=== PATIENT | female | born 1965 | race Caucasian/White ===

== ENCOUNTER 2016-09-05 10:00 | Day surgery (SDC) | payer OTHER ==
[2016-09-05] MEDS ORDERED: D5 LR 1000 ML 1,000 ML IV ONE (10:25)
[2016-09-05] MEDS ORDERED: DIPRIVAN VIAL 20 ML ONE ×2 (12:02→12:38)
[2016-09-05] MEDS ORDERED: DIPRIVAN VIAL 10 ML ONE (12:27)
[2016-09-05 13:09] VITALS: BP 123/68
== END 2016-09-05 13:13 | disposition home or self-care (01) ==
LOC: SURG1 10:00
PROVIDERS: ATTEND Internal Medicine Gastroenterology
PROC: 0DBP8ZX Excision of Rectum, Via Natural or Artificial Opening Endoscopic, Diagnostic (ICD-10-PCS; principal; 2016-09-05 14:45)
PROC: 0DJD8ZZ Inspection of Lower Intestinal Tract, Via Natural or Artificial Opening Endoscopic (ICD-10-PCS; principal; 2016-09-05 14:45)
PROC: 0DBN8ZX Excision of Sigmoid Colon, Via Natural or Artificial Opening Endoscopic, Diagnostic (ICD-10-PCS; principal; 2016-09-05 14:45)
PROC: 0DBK8ZX Excision of Ascending Colon, Via Natural or Artificial Opening Endoscopic, Diagnostic (ICD-10-PCS; principal; 2016-09-05 14:45)
DX: Z12.11 Encounter for screening for malignant neoplasm of colon (principal); R10.84 Generalized abdominal pain; K64.8 Other hemorrhoids; Z87.19 Personal history of other diseases of the digestive system
CPT/HCPCS: A4217; J3490; J7120

== ENCOUNTER → 2017-01-02 | Outpatient (CLI) | payer OTHER ==
--- NOTE | 2017-01-02 16:45 | MRI ---
MRI left knee without contrast Indication: Left knee pain and stiffness Comparison: None Technique: Multiplanar, multisequence MR images the left knee were obtained without contrast. Findings: No evidence for acute fracture or subluxation. There is moderate chondromalacia of the nikolai tral weight-bearing medial femoral condyle, with associated subchondral cystic change. The articular surfaces of the lateral femorotibial and patellofemoral compartment are grossly maintained. The men isci, ACL, PCL, MCL, major lateral stabilizers, and extensor mechanism are intact. No joint effusion or popliteal cyst. 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 Reported By:
--- NOTE | 2017-01-03 07:59 | MRI ---
MRI right knee without contrast Indication: Right knee pain and stiffness Technique: Multisequence, multiplanar MR images of the right knee were obtained without contrast. Comparison: None Findings: No acute fracture or malalignment is identified. There are scattered, small full-thickness cartilage defects along the central weight-bearing medial femoral condyle with small subchondral cyst formati on. The articular cartilage of the lateral femorotibial and patellofemoral compartments appear relat ively well maintained. There is no significant joint effusion or popliteal fossa cyst. The menisci, cruciate ligaments, MCL, major lateral stabilizers of the knee and extensor mechanism a ppear intact. 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 Reported By:
== END ==
LOC: RAD 14:53
PROVIDERS: ATTEND Internal Medicine
DX: M25.562 Pain in left knee (principal); M25.561 Pain in right knee
CPT/HCPCS: 73721

== ENCOUNTER → 2017-06-05 | Outpatient (CLI) | payer OTHER, MEDICAID ==
--- NOTE | 2017-06-05 11:37 | RAD ---
Examination: Right knee, three views History: [place] a [place] Findings: No evidence for trauma, arthropathy, bone destruction or synovial effusion. Impression: Examination within normal limits. Reported By:
== END ==
LOC: RAD 11:12
PROVIDERS: ATTEND Internal Medicine
DX: M25.561 Pain in right knee (principal)
CPT/HCPCS: 73560

== ENCOUNTER → 2017-09-08 | Outpatient (CLI) | payer OTHER, MEDICAID ==
--- NOTE | 2017-09-09 12:46 | MG ---
HISTORY: SCREENING Comparison: 07/23/2016 FINDINGS: Bilateral CC and MLO projections of the right and left breast were obtained. Scattered fibroglandula r tissue is seen to be present. No significant architectural distortion, mass or clustered microcalc ifications can be observed to suggest malignancy. No skin thickening or nipple retraction is appreci ated. No pathological lymphadenopathy can be identified. Benign-appearing calcifications scattered throughout the right and left breasts are observed. IMPRESSION: NO RADIOGRAPHIC EVIDENCE OF MALIGNANCY. ACR CATEGORY 2 - benign findings. FOLLOW-UP EXAM 1 YEAR. Diagnostic CAD was utilized and reviewed. * 0 (ZERO) - ASSESSMENT INCOMPLETE; ADDITIONAL IMAGING IS NEEDED. * 1/ (ONE) - NEGATIVE. * 2/II (TWO) - BENIGN FINDINGS. * 3/III (THREE) - PROBABLY BENIGN FINDING; SHORT INTERVAL FOLLOW-UP SUGGESTED. * 4/IV (FOUR) - SUSPICIOUS ABNORMALITY; BIOPSY SHOULD BE CONSIDERED. * 5/V - HIGHLY SUSPICIOUS OF MALIGNANCY; BIOPSY SHOULD BE PERFORMED. A NEGATIVE X-RAY REPORT SHOULD NOT DELAY BIOPSY IF A DOMINANT OR CLINICALLY SUSPICIOUS MASS IS PRESENT; 4 TO 8 PERCENT OF CANCERS ARE NOT IDENTIFIED BY X-RAY. A NEGA TIVE REPORT MAY REINFORCE THE CLINICAL IMPRESSION. ADENOSIS AND DENSE BREASTS MAY OBSCURE AN UNDERLY ING NEOPLASM. Reported By:
== END ==
LOC: RAD 13:53
PROVIDERS: ATTEND Internal Medicine
DX: Z12.31 Encounter for screening mammogram for malignant neoplasm of breast (principal)
CPT/HCPCS: 77067

== ENCOUNTER 2017-09-25 09:14 | Day surgery (SDC) | payer OTHER, MEDICAID ==
[2017-09-25] MEDS ORDERED: D5 LR 1000 ML 1,000 ML IV ONE (09:23)
[2017-09-25] MEDS ORDERED: DIPRIVAN VIAL 20 ML ONE (10:41)
[2017-09-25] MEDS ORDERED: DIPRIVAN VIAL 10 ML ONE (11:05)
[2017-09-25 11:35] VITALS: BP 122/63
== END 2017-09-25 11:37 | disposition home or self-care (01) ==
LOC: SURG1 09:14
PROVIDERS: ATTEND Internal Medicine Gastroenterology
PROC: 0DBN8ZX Excision of Sigmoid Colon, Via Natural or Artificial Opening Endoscopic, Diagnostic (ICD-10-PCS; principal; 2017-09-25 16:30)
PROC: 0DBP8ZX Excision of Rectum, Via Natural or Artificial Opening Endoscopic, Diagnostic (ICD-10-PCS; principal; 2017-09-25 16:30)
PROC: 0DJD8ZZ Inspection of Lower Intestinal Tract, Via Natural or Artificial Opening Endoscopic (ICD-10-PCS; principal; 2017-09-25 16:30)
DX: K63.5 Polyp of colon (principal); K64.0 First degree hemorrhoids; Z86.010 Personal history of colon polyps
CPT/HCPCS: A4217; J3490; J7120